=== PATIENT | female | born 1990 | race Caucasian/White ===

== ENCOUNTER 2018-07-19 03:44 | Emergency (ER) | payer OTHER | END 2018-07-19 04:44 | disposition home or self-care (01) | LOC: FTE 03:44 | DX: J02.9 Acute pharyngitis, unspecified (principal); F17.210 Nicotine dependence, cigarettes, uncomplicated | CPT/HCPCS: 99283 ==

== ENCOUNTER 2018-11-22 06:01 | Emergency (ER) | payer OTHER ==
[2018-11-22] MEDS: IBUPROFEN 600 MG TAB PO (06:49)
[2018-11-22] MEDS: ACETAMINOPHEN 500 MG TAB PO (06:49)
[2018-11-22] MEDS: PROMETHAZINE/DM (CUP) PO (06:49)
== END 2018-11-22 07:40 | disposition home or self-care (01) ==
LOC: FTE 06:01
DX: J09.X2 Influenza due to identified novel influenza A virus with other respiratory manifestations (principal); Z87.891 Personal history of nicotine dependence
CPT/HCPCS: 71046; 87400; 99284-25